=== PATIENT | female | born 1940 | race Caucasian/White ===

== ENCOUNTER 2024-08-26 06:33 | Day surgery (SDC) | payer BC, SELFPAY | END 2024-08-26 13:15 | disposition home or self-care (01) | LOC: GI 06:33 | PROVIDERS: ATTENDING PHYSICIAN Internal Medicine Gastroenterology | DX: R19.5 Other fecal abnormalities (principal); K57.30 Diverticulosis of large intestine without perforation or abscess without bleeding; D17.5 Benign lipomatous neoplasm of intra-abdominal organs; R13.10 Dysphagia, unspecified; K22.89 Other specified disease of esophagus; K22.2 Esophageal obstruction; K31.89 Other diseases of stomach and duodenum; D12.3 Benign neoplasm of transverse colon | CPT/HCPCS: 45380; 43239; 88305; 88341; 88342 ==

== ENCOUNTER → 2024-09-06 09:45 | Outpatient (REF) | payer OTHER, SELFPAY | LOC: RAD 09:45 | PROVIDERS: ATTENDING PHYSICIAN Internal Medicine Gastroenterology; FAMILY PHYSICIAN Family Medicine | DX: R13.19 Other dysphagia (principal); K22.2 Esophageal obstruction | CPT/HCPCS: 74221 ==

== ENCOUNTER → 2024-09-16 07:08 | Outpatient (REF) | payer OTHER, SELFPAY | LOC: RAD 07:08 | PROVIDERS: ATTENDING PHYSICIAN Internal Medicine Gastroenterology; FAMILY PHYSICIAN Family Medicine | DX: K22.2 Esophageal obstruction (principal) | CPT/HCPCS: 71260; 74177; Q9967 ==

== ENCOUNTER → 2024-10-30 09:19 | Outpatient (REF) | payer OTHER, SELFPAY ==
[2024-10-30 09:40] LABS: % Basophils 0.9 % (0-2); % Eosinophils 0.6 % (0-6); % Immature Granulocytes 0.3 % (0-0.5); % Lymphocytes 36.9 % (20.5-51.1); % Neutrophils 53.3 % (42.2-75.2); Absolute Basophils 0.1 10^3/uL (0-0.2); Absolute Lymphocytes 2.4 10^3/uL (1.2-3.4); Absolute Monocytes 0.5 10^3/uL (0.1-0.6); Absolute Neutrophils 3.4 10^3/uL (1.4-6.5); Hematocrit 37.1 % (37.0-47.0); Hemoglobin 11.9 g/dL (12.0-16.0); Mean Corp Hgb Conc. 32.1 g/dL (33.0-37.0); Mean Corpuscular Hgb 28.2 pg (27.0-31.0); Mean Corpuscular Volume 87.9 fL (81.0-99.0); Mean Platelet Volume 10.8 fL (7.4-10.4); Nucleated Red Blood Cells % 0 %; Platelet Count 166 10^3/uL (130-400); Red Blood Cell Count 4.22 10^6/uL (4.20-5.40); White Blood Cell Count 6.4 10^3/uL (4.8-10.8)
[2024-10-30 09:46] VITALS: BP 143/83; BP_SYST 56
[2024-10-30 09:58] LABS: INR 1.02; PT 13.9 Sec (11.4-14.6)
[2024-10-30] MEDS: ATIVAN 0.5 MG IV (10:29)
[2024-10-30] MEDS: NSS (PRESERVATIVE FREE) 0.25 ML IV (10:30)
[2024-10-30 11:45] VITALS: BP 141/75
== END ==
LOC: RADI 09:19
PROVIDERS: ATTENDING PHYSICIAN Internal Medicine Hematology & Oncology; FAMILY PHYSICIAN Physician Assistant
DX: C88.40 Extranodal marginal zone B-cell lymphoma of mucosa-associated lymphoid tissue [MALT-lymphoma] not having achieved remission (principal); D68.8 Other specified coagulation defects
CPT/HCPCS: 88305; 88311; 88312; 36415; 38222; 77012; 85025; 85610; 88313

== ENCOUNTER → 2024-10-31 10:33 | Outpatient (REF) | payer OTHER, SELFPAY | LOC: PET 10:33 | PROVIDERS: ATTENDING PHYSICIAN Internal Medicine Hematology & Oncology | DX: C88.40 Extranodal marginal zone B-cell lymphoma of mucosa-associated lymphoid tissue [MALT-lymphoma] not having achieved remission (principal) | CPT/HCPCS: 77062; 77066 ==

== ENCOUNTER → 2024-11-20 08:09 | Outpatient (REF) | payer OTHER, SELFPAY ==
--- NOTE | 2024-11-20 15:29 | OID.BR.INTR ---
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
- -
Did not meet patient at time of biopsy. Will follow up per protocol.
== END ==
LOC: WDC 08:09
PROVIDERS: ATTENDING PHYSICIAN Internal Medicine Hematology & Oncology
DX: C50.912 Malignant neoplasm of unspecified site of left female breast (principal); C50.911 Malignant neoplasm of unspecified site of right female breast
CPT/HCPCS: 88305; 19083; 76642; 88341; 88342; 88360

== ENCOUNTER → 2024-12-09 08:17 | Outpatient (REF) | payer OTHER, SELFPAY ==
[2024-12-09 08:35] VITALS: BP 126/60; BP_SYST 55
[2024-12-09 09:57] VITALS: BP 125/81
== END ==
LOC: RADI 08:17
PROVIDERS: ATTENDING PHYSICIAN Surgery; FAMILY PHYSICIAN Family Medicine
DX: C77.0 Secondary and unspecified malignant neoplasm of lymph nodes of head, face and neck (principal); C50.911 Malignant neoplasm of unspecified site of right female breast; C50.912 Malignant neoplasm of unspecified site of left female breast
CPT/HCPCS: 38505; 76942; 88305; 88333; 88341; 88342; 88360